=== PATIENT | female | born 1930 | race Caucasian/White ===

== ENCOUNTER 2018-06-09 14:40 | Inpatient (IN) | payer OTHER ==
[~2018-06-09] VITALS: Ht 170.2 cm; Wt 72.7 kg
[2018-06-09 15:36] LABS: BASOPHIL % 0.6 % (0-2); PLATELET COUNT 215 x10^3mcL (130-400); RED CELL DISTRIBUTION WIDTH 13.2 % (11.5-14.5)
[2018-06-09 15:38] LABS: CALCIUM 8.4 mg/dL (8.5-10.1); CARBON DIOXIDE 25.1 mmol/L (21-32); CHLORIDE SERUM 103 mmol/L (98-107); CREATININE SERUM 1.7 mg/dL (0.6-1.0); GLUCOSE SERUM 108 mg/dL (74-106); POTASSIUM SERUM 4.9 mmol/L (3.5-5.1); SODIUM SERUM 137 mmol/L (136-145)
[2018-06-09 15:44] LABS: ALKALINE PHOSPHATASE 84 U/L (46-116); ALT/SGPT 14 U/L (14-59); AST/SGOT 15 U/L (15-37); BILIRUBIN TOTAL 0.2 mg/dL (0.20-1.00); TOTAL PROTEIN, SERUM 6.8 g/dL (6.4-8.2)
[2018-06-09 15:45] LABS: ALBUMIN 3.1 g/dL (3.4-5.0)
[2018-06-09 17:14] LABS: microscopic required? YES; urine erythrocyte TRACE (NEGATIVE)
[2018-06-09] MEDS ORDERED: KAPVAY0.1 MG PO (17:32)
[2018-06-09] MEDS ORDERED: BIOTIN PO (17:32)
[2018-06-09] MEDS ORDERED: CALCIUM + D SO1 EACH PO (17:32)
[2018-06-09] MEDS ORDERED: VITAMIN E100 IU (17:33)
[2018-06-09] MEDS ORDERED: MULTI-VITAMINS1 TAB PO (17:33)
[2018-06-09] MEDS ORDERED: LEADER MAGNESIU1 TAB PO (17:33)
[2018-06-09] MEDS ORDERED: LISINOPRIL10 MG PO (17:33)
[2018-06-09] MEDS ORDERED: SYNTHROID0.175 MG PO (17:33)
[2018-06-09 18:19] VITALS: BP 118/47
[2018-06-09 18:28] LABS: CHOLESTEROL/HDL RATIO 4.5; MAGNESIUM 2.3 mg/dL (1.8-2.4); PHOSPHOROUS 3.3 mg/dL (2.5-4.9)
[2018-06-09 18:30] VITALS: Ht 170.2 cm; Wt 72.7 kg
[2018-06-09 18:37] LABS: T3 TOTAL 0.54 ng/mL
[2018-06-09 18:38] LABS: FREE T4 0.82 ng/dL (0.76-1.46)
[2018-06-09 18:39] LABS: FREE THYROXINE INDEX 1.6 ug/dL (1.4-4.5); T4(THYROXINE) 4.5 ug/dL (4.7-13.3)
[2018-06-09 19:03] LABS: AMPHETAMINE QUAL UR NONE DETECTED (See below)
[2018-06-09 20:56] VITALS: BP 109/36
[2018-06-09 22:38] VITALS: BP 112/45
[2018-06-10 04:04] VITALS: BP 115/39
[2018-06-10 06:43] LABS: BASOPHIL % 0.5 % (0-2); PLATELET COUNT 194 x10^3mcL (130-400); RED CELL DISTRIBUTION WIDTH 13.3 % (11.5-14.5)
[2018-06-10 06:58] LABS: CALCIUM 8.3 mg/dL (8.5-10.1); CARBON DIOXIDE 19.9 mmol/L (21-32); CHLORIDE SERUM 107 mmol/L (98-107); CREATININE SERUM 1.3 mg/dL (0.6-1.0); GLUCOSE SERUM 114 mg/dL (74-106); MAGNESIUM 1.9 mg/dL (1.8-2.4); POTASSIUM SERUM 4.5 mmol/L (3.5-5.1); SODIUM SERUM 138 mmol/L (136-145)
[2018-06-10 08:01] VITALS: BP 107/68
[2018-06-10 13:38] VITALS: BP 115/56
[2018-06-10 13:54] VITALS: BP 115/56
== END 2018-06-10 15:24 | disposition home or self-care (01) | DRG 602 ==
LOC: ED 14:40 → DU 17:01
PROVIDERS: Emergency Medicine; Family Medicine
DX: L03.311 Cellulitis of abdominal wall (principal); N17.0 Acute kidney failure with tubular necrosis; E44.0 Moderate protein-calorie malnutrition; E86.0 Dehydration; R55 Syncope and collapse; B95.61 Methicillin susceptible Staphylococcus aureus infection as the cause of diseases classified elsewhere; I10 Essential (primary) hypertension; E78.5 Hyperlipidemia, unspecified; E03.9 Hypothyroidism, unspecified; Z85.3 Personal history of malignant neoplasm of breast; Z90.11 Acquired absence of right breast and nipple; Z68.25 Body mass index [BMI] 25.0-25.9, adult
CPT/HCPCS: 83880; 84439; J0295; J3490; J7030; Q0092